=== PATIENT | male | born 1995 | race Caucasian/White ===

== ENCOUNTER 2016-07-26 10:56 | Emergency (ER) | payer MEDICAID ==
[2016-07-26] MEDS ORDERED: HYDROmorphone 0.5 MG/0.5 ML Syringe IVPUSH ONE (12:05)
--- NOTE | 2016-07-26 12:11 | EDM.PDOC ---
ED HISTORY OF PRESENT ILLNESS - General Chief Complaint: Chest Pain Stated Complaint: COMPLICATIONS FROM HEART SURGERY Time Seen by Provider: 07/26/16 11:00 Source: Reports: Patient History Limitations: Reports: No limitations - History of Present Illness INITIAL COMMENTS - FREE TEXT/NARRATIVE: pt had surgery by Dr Maite Kennedy 10 days ago for aortic insuff. he was doing well until he got up this am and he is having severe pain when he takes a deep breath. This makes him feel sob. He does have a 100 % o2 sat. Timing/Duration: Reports: Hour(s):, Getting worse Severity: moderate Location, General: Reports: chest Quality: Reports: Sharp, Stabbing Worsens with: Reports: Breathing Associated Symptoms: Reports: shortness of breath - Related Data Allergies/ADRs: Allergies Allergy/AdvReac Type Severity Reaction Status Date / Time No Known Allergies Allergy Verified 04/22/15 00:01 Home Meds: Home Meds Metoprolol Tartrate 50 mg PO BID 07/26/16 [History] Warfarin [Coumadin] 2.5 mg PO DAILY 07/26/16 [History] Past Medical History HEENT History: Reports: Impaired vision Other HEENT History: tonsillectomy Cardiovascular History: Reports: Heart murmur, Hypertension Other Cardiovascular History: Bicuspid valve disorder Respiratory History: Reports: Bronchitis, recurrent Musculoskeletal History: Reports: Back pain, chronic Psychiatric History: Reports: Anxiety - Infectious Disease History Infectious Disease History: Reports: Chicken pox - Past Surgical History HEENT Surgical History: Reports: Oral surgery, Tonsillectomy Cardiovascular Surgical History: Reports: Valve replacement Social & Family History - Family History Family Medical History: Noncontributory - Tobacco Use Smoking Status *Q: Former Smoker Years of Tobacco use: 8 Packs/Tins Daily: 0.3 Used Tobacco, but Quit: Yes Month Tobacco Last Used: Second Hand Smoke Exposure: Yes - Caffeine Use Caffeine Use: Reports: None - Recreational Drug Use Recreational Drug Use: No Drug Use in Last 12 Months: No Recreational Drug Type: Reports: Marijuana/Hashish Recreational Drug Use Frequency: Not Used In Over 6 Months - Living Situation & Occupation Living situation: Reports: with significant other Occupation: employed (Lives with his girlfriend in 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 He has good o2 sats at 100 %, He is on coumadin. He does not have a fever. Exam Limited By: No limitations General Appearance: alert, moderate distress Ears: normal TMs Nose: normal inspection Throat/Mouth: Normal inspection Head: atraumatic Neck: normal inspection Respiratory/Chest: decreased breath sounds, other (pain on the left side. ) Cardiovascular: regular rate, rhythm GI/Abdominal: soft, non tender (Male) Exam: Deferred Rectal (Males) Exam: Deferred Back Exam: normal inspection Extremities: normal inspection Neurological: alert, oriented, normal cognition Psychiatric: normal affect Course - Vital Signs Last Recorded V/S: Last Vital Signs Temp 36.3 C 07/26/16 11:06 Pulse 65 07/26/16 12:19 Resp 14 07/26/16 12:19 BP 124/74 07/26/16 12:19 Pulse Ox 97 07/26/16 12:19 - Orders/Labs/Meds Labs: Laboratory Tests 07/26/16 07/26/16 07/26/16 Range/Units 11:12 11:12 11:35 WBC 12.4 H (4.5-11.0) K/uL RBC 4.30 (4.30-5.90) M/uL Hgb 12.8 D (12.0-15.0) g/dL Hct 39.4 L (40.0-54.0) % MCV 92 (80-98) fL MCH 30 (27-31) pg MCHC 33 (32-36) % Plt Count 560 H (150-400) K/uL Add Manual Diff Yes Neutrophils % (Manual) 70 H (36-66) % Band Neutrophils % 1 L (5-11) % Lymphocytes % (Manual) 17 L (24-44) % Monocytes % (Manual) 11 H (2-6) % Eosinophils % (Manual) 1 L (2-4) % PT (9.5-12.0) sec INR (0.80-1.20) Sodium 141 (140-148) mmol/L Potassium 5.0 (3.6-5.2) mmol/L Chloride 101 (100-108) mmol/L Carbon Dioxide 31 (21-32) mmol/L Anion Gap 9.3 (5.0-14.0) mmol/L BUN 23 H D (7-18) mg/dL Creatinine 1.1 (0.8-1.3) mg/dL Est Cr Clr Drug Dosing 92.41 mL/min Estimated GFR (MDRD) > 60 (>60) Glucose 98 (74-106) mg/dL Calcium 9.1 (8.5-10.1) mg/dL Total Bilirubin 0.4 (0.2-1.0) mg/dL AST 13 L (15-37) U/L ALT 32 (12-78) U/L Alkaline Phosphatase 68 (46-116) U/L C-Reactive Protein (0.0-0.3) mg/dL Total Protein 7.7 (6.4-8.2) g/dL Albumin 4.2 (3.4-5.0) g/dL Globulin 3.5 (2.3-3.5) g/dL Albumin/Globulin Ratio 1.2 (1.2-2.2) Urine Color Yellow Urine Appearance Turbid Urine pH 8.0 (4.5-8.0) Ur Specific Ryan 1.010 (1.008-1.030) Urine Protein Negative (NEGATIVE) mg/dL Urine Glucose (UA) Normal (NEGATIVE) mg/dL Urine Ketones Negative (NEGATIVE) mg/dL Urine Occult Blood Negative (NEGATIVE) Urine Nitrite Negative (NEGAITVE) Urine Bilirubin Negative (NEGATIVE) Urine Urobilinogen Normal (NORMAL) mg/dL Ur Leukocyte Esterase Negative (NEGATIVE) Urine RBC 0-5 (0-5) Urine WBC 0-5 (0-5) Ur Epithelial Cells Not seen Amorphous Sediment Many Urine Bacteria Not seen Urine Mucus Rare 07/26/16 07/26/16 Range/Units 11:35 11:35 WBC (4.5-11.0) K/uL RBC (4.30-5.90) M/uL Hgb (12.0-15.0) g/dL Hct (40.0-54.0) % MCV (80-98) fL MCH (27-31) pg MCHC (32-36) % Plt Count (150-400) K/uL Add Manual Diff Neutrophils % (Manual) (36-66) % Band Neutrophils % (5-11) % Lymphocytes % (Manual) (24-44) % Monocytes % (Manual) (2-6) % Eosinophils % (Manual) (2-4) % PT 21.0 H (9.5-12.0) sec INR 1.94 H (0.80-1.20) Sodium (140-148) mmol/L Potassium (3.6-5.2) mmol/L Chloride (100-108) mmol/L Carbon Dioxide (21-32) mmol/L Anion Gap (5.0-14.0) mmol/L BUN (7-18) mg/dL Creatinine (0.8-1.3) mg/dL Est Cr Clr Drug Dosing mL/min Estimated GFR (MDRD) (>60) Glucose (74-106) mg/dL Calcium (8.5-10.1) mg/dL Total Bilirubin (0.2-1.0) mg/dL AST (15-37) U/L ALT (12-78) U/L Alkaline Phosphatase (46-116) U/L C-Reactive Protein 3.05 H (0.0-0.3) mg/dL Total Protein (6.4-8.2) g/dL Albumin (3.4-5.0) g/dL Globulin (2.3-3.5) g/dL Albumin/Globulin Ratio (1.2-2.2) Urine Color Urine Appearance Urine pH (4.5-8.0) Ur Specific Ryan (1.008-1.030) Urine Protein (NEGATIVE) mg/dL Urine Glucose (UA) (NEGATIVE) mg/dL Urine Ketones (NEGATIVE) mg/dL Urine Occult Blood (NEGATIVE) Urine Nitrite (NEGAITVE) Urine Bilirubin (NEGATIVE) Urine Urobilinogen (NORMAL) mg/dL Ur Leukocyte Esterase (NEGATIVE) Urine RBC (0-5) Urine WBC (0-5) Ur Epithelial Cells Amorphous Sediment Urine Bacteria Urine Mucus Meds: Medications Discontinued Medications Generic Name Dose Route Start Last Admin Trade Name Freq PRN Reason Stop Dose Admin Hydromorphone HCl 0.5 mg 07/26/16 12:05 07/26/16 12:15 Dilaudid IVPUSH 07/26/16 12:06 0.5 mg ONETIME ONE Administration - Re-Assessments/Exams Free Text/Narrative Re-Assessment/Exam: 07/26/16 12:13 pt has a chest xray that looks good. He has a crp which is elevated. His wbc is mildly elevated. His chems look good. His urine is clear. 07/26/16 12:14 chest xray is neg for infiltrate. 07/26/16 12:58 cardiovascular surger at [place] was contacted and they did not reccommnd any anti inflamitories. Departure - Departure Time of Disposition: 12:59 Disposition: Home, Self-Care 01 Condition: fair Clinical Impression: Johan syndrome, History of open heart surgery Instructions: Nonspecific Chest Pain, [id number] Referrals: PCP,None [Primary Care Provider] - Forms: ED Department Discharge Care Plan Goals: encourage deep breathing, norco 5/325 q6h prn for pain, take an extra 2.5 of coumadin and go back to the same dose, keep appt in [place] Thursday, cardiovasular surgery did not want to use antiinflamitories.
[2016-07-26 12:20] VITALS: BP 124/74
--- NOTE | 2016-07-28 09:51 | CR ---
Two-view chest Comparison: 31 May 2016. Findings: The patient has had a interval sternotomy for aortic valve repair.. The wires are intact. There is borderline cardiac enlargement. The vascula r structures are within normal limits. Impression: 1. No acute findings.
== END 2016-07-26 13:15 | disposition home or self-care (01) ==
LOC: JP.ED 10:56
DX: I97.0 Postcardiotomy syndrome (principal); I10 Essential (primary) hypertension; Z79.899 Other long term (current) drug therapy; Z79.01 Long term (current) use of anticoagulants; H54.7 Unspecified visual loss; Z95.5 Presence of coronary angioplasty implant and graft; Z87.891 Personal history of nicotine dependence
CPT/HCPCS: 36415; 71020; 80053; 81001; 85025; 85610; 86140; 93005; 96374; 99284; J1170; 93010; 99285

== ENCOUNTER 2016-10-13 17:09 | Emergency (ER) | payer MEDICAID ==
[2016-10-13] MEDS ORDERED: Sodium Chloride 0.9% 10 ML Syringe FLUSH PRN (17:44)
[2016-10-13] MEDS ORDERED: LORazepam 2 MG/ML MDV IVPUSH ONE (17:45)
[2016-10-13] MEDS ORDERED: Sodium Chloride 0.9% 1,000 ML IV ONE ×2 (17:45→19:14)
[2016-10-13] MEDS ORDERED: Ondansetron 4 MG/2 ML SDV IVPUSH ONE (17:46)
--- NOTE | 2016-10-13 17:58 | EDM.PDOC ---
ED HPI GENERAL MEDICAL PROBLEM - General Chief Complaint: Drug or Alcohol Abuse Stated Complaint: OPPIOD WITHDRAWLS Time Seen by Provider: 10/13/16 17:45 Source of Information: Reports: Patient History Limitations: Reports: No Limitations - History of Present Illness INITIAL COMMENTS - FREE TEXT/NARRATIVE: Joel is a 21 year old male who presents to the ED today with c/o anxiety, nausea , and generally not feeling well. Patient reports that he has been taking a "friends" morphine and tramadol for his chronic neck/back pain for the last 3 weeks. Patient has been using this daily at least 2 times a day until today when he had his last dose this morning. Patient reports his symptoms started this afternoon. Patient does endorse a hx of opioid dependance and has been through treatment in the past. Patient reports he has a treatment facility lined up for when he is done with the acute withdrawal phase. Patient had his aortic valve replaced in [place] 2 months ago, he denies any chest pain or heart related complications. Onset: Today Duration: Hour(s): (4) Upper Back Pain Score (Numeric/FACES): 4 - Related Data Allergies Allergy/AdvReac Type Severity Reaction Status Date / Time No Known Allergies Allergy Verified 10/13/16 17:26 Home Meds: Home Meds Metoprolol Tartrate 50 mg PO BID 07/26/16 [History] Warfarin [Coumadin] 1 tab PO DAILY 07/26/16 [History] Warfarin Sodium [Warfarin Sodium] 2 tab PO ASDIRECTED 10/13/16 [History] Past Medical History HEENT History: Reports: Impaired Vision Other HEENT History: tonsillectomy Cardiovascular History: Reports: Heart Murmur, Hypertension Other Cardiovascular History: Bicuspid valve disorder Respiratory History: Reports: Bronchitis, Recurrent Musculoskeletal History: Reports: Back Pain, Chronic Psychiatric History: Reports: Anxiety - Infectious Disease History Infectious Disease History: Reports: Chicken Pox - Past Surgical History HEENT Surgical History: Reports: Oral Surgery, Tonsillectomy Cardiovascular Surgical History: Reports: Valve Replacement Social & Family History - Family History Family Medical History: Noncontributory - Tobacco Use Smoking Status *Q: Current Every Day Smoker Years of Tobacco use: 8 Packs/Tins Daily: 0.5 Used Tobacco, but Quit: No Month Tobacco Last Used: Second Hand Smoke Exposure: Yes - Caffeine Use Caffeine Use: Reports: None - Recreational Drug Use Recreational Drug Use: Yes Drug Use in Last 12 Months: Yes Recreational Drug Type: Reports: Morphine, Other (see below) Other Recreational Drug Type: tramadol Recreational Drug Use Frequency: Daily - Living Situation & Occupation Living situation: Reports: with Significant Other Occupation: Employed ED ROS GENERAL - Review of Systems Review Of Systems: See Below Constitutional: Reports: Chills, Decreased Appetite HEENT: Reports: No Symptoms Respiratory: Reports: No Symptoms Cardiovascular: Reports: No Symptoms Endocrine: Reports: No Symptoms GI/Abdominal: Reports: Nausea : Reports: No Symptoms Musculoskeletal: Reports: Neck Pain, Back Pain Skin: Reports: No Symptoms Neurological: Reports: No Symptoms Psychiatric: Reports: Anxiety ED EXAM, BEHAVIORAL HEALTH - Physical Exam Exam: See Below Exam Limited By: No Limitations General Appearance: Alert, Anxious, Mild Distress Eye Exam: Bilateral Eye: EOMI, PERRL Ears: Normal External Exam Neck: Normal Inspection, Supple Respiratory/Chest: No Respiratory Distress, Lungs Clear, Normal Breath Sounds Cardiovascular: Normal Peripheral Pulses, No Edema, Tachycardia, Other ( Hypertensive) GI/Abdominal: Normal Bowel Sounds, Soft, Non-Tender Neurological: Alert, CN II-XII Intact Skin Exam: Other (mildly diaphoretic) COURSE, BEHAVIORAL HEALTH COMP - Course Vital Signs: Last Vital Signs Temp 36.8 C 10/13/16 18:52 Pulse 70 10/13/16 18:52 Resp 16 10/13/16 18:52 BP 147/75 H 10/13/16 18:52 Pulse Ox 98 10/13/16 18:52 Joel is a 21 year old male with a hx of recent aortic valve replacement and Johan's syndrome who presents to the ED today with c/o opioid withdrawal. Please refer to HPI and focused exam. Patient on exam is anxious, he is mildly diaphoretic. Patient arrives here hypertensive and tachycardic. Exam is consistent with acute withdrawal. PIV established. Patient was given 1.5 liters of NS. He was given Zofran IV for nausea and IV ativan for anxiety and withdrawal symptoms with vast improvement. Blood work returns including CBC and CMP within normal limits. Urine Drug screen is positive for opioids, benzodiazepine and methadone. I discussed findings with patient whose grandfather is now at bedside and will be with patient during his withdrawal. Patient reports he does have outpatient chem dep lined up for when his active withdrawal is done. I feel patient is stable to be discharged home with his grandfather, he looks much better, VS have improved. Patient does reports worsening anxiety and depression lately which certainly is likely contributing to his opioid use, I encouraged him to follow up with his PCP in 1-2 weeks to discuss starting an anti-depressant. I don't want to start him on anything while he is in active withdrawal as the side effects may mimic any withdrawal symptoms. Patient was discharged with Zofran and 10 tablets of Ativan for his withdrawal symptoms. Patient's grandfather reports that he will be in charge of the Ativan for patient. I discussed with both patient and his grandfather reasons to return to the ED. They are agreeable to plan of care and questions were answered prior to discharge. Patient discharged with his grandfather driving and in stable condition. Orders, Labs, Meds: Active Orders 24 hr Category Date Time Status Peripheral IV Care [RC] . DIRECTED Care 10/13/16 17:45 Active Sodium Chloride 0.9% [Normal Saline] 1,000 ml Med 10/13/16 19:14 Active IV .BOLUS Sodium Chloride 0.9% [Saline Flush] Med 10/13/16 17:44 Active 10 ml FLUSH ASDIRECTED PRN Peripheral IV Insertion Adult [OM.PC] Routine Oth 10/13/16 17:44 Ordered Medication Orders Sodium Chloride (Normal Saline) 1,000 mls @ 250 mls/hr IV .BOLUS ONE Stop: 10/13/16 23:13 Last Admin: 10/13/16 19:24 Dose: 250 mls/hr Sodium Chloride (Saline Flush) 10 ml FLUSH ASDIRECTED PRN PRN Reason: Keep Vein Open Last Admin: 10/13/16 19:33 Dose: 10 ml Laboratory Tests 10/13/16 10/13/16 10/13/16 Range/Units 17:56 17:56 19:56 WBC 7.3 (4.5-11.0) K/uL RBC 5.09 (4.30-5.90) M/uL Hgb 14.8 D (12.0-15.0) g/dL Hct 43.6 (40.0-54.0) % MCV 86 (80-98) fL MCH 29 (27-31) pg MCHC 34 (32-36) % Plt Count 239 (150-400) K/uL Neut % (Auto) 64 (36-66) % Lymph % (Auto) 25 (24-44) % Curry % (Auto) 11 H (2-6) % Eos % (Auto) 0 L (2-4) % Baso % (Auto) 0 (0-1) % Sodium 144 (140-148) mmol/L Potassium 4.2 (3.6-5.2) mmol/L Chloride 105 (100-108) mmol/L Carbon Dioxide 28 (21-32) mmol/L Anion Gap 10.7 (5.0-14.0) mmol/L BUN 10 D (7-18) mg/dL Creatinine 0.9 (0.8-1.3) mg/dL Est Cr Clr Drug Dosing 112.94 mL/min Estimated GFR (MDRD) > 60 (>60) Glucose 103 (74-106) mg/dL Calcium 8.9 (8.5-10.1) mg/dL Total Bilirubin 0.4 (0.2-1.0) mg/dL AST 13 L (15-37) U/L ALT 12 (12-78) U/L Alkaline Phosphatase 97 (46-116) U/L Total Protein 7.3 (6.4-8.2) g/dL Albumin 4.3 (3.4-5.0) g/dL Globulin 3.0 (2.3-3.5) g/dL Albumin/Globulin Ratio 1.4 (1.2-2.2) Urine Opiates Screen Positive H (NEGATIVE) Ur Oxycodone Screen Negative (NEGATIVE) Urine Methadone Screen Positive H (NEGATIVE) Ur Propoxyphene Screen Negative (NEGATIVE) Ur Barbiturates Screen Negative (NEGATIVE) Ur Tricyclics Screen Negative (NEGATIVE) Ur Phencyclidine Scrn Negative (NEGATIVE) Ur Amphetamine Screen Negative (NEGATIVE) U Methamphetamines Scrn Negative (NEGATIVE) Urine MDMA Screen Negative (NEGATIVE) U Benzodiazepines Scrn Positive H (NEGATIVE) U Cocaine Metab Screen Negative (NEGATIVE) U Marijuana (THC) Screen Negative (NEGATIVE) Medications Generic Name Dose Route Start Last Admin Trade Name Freq PRN Reason Stop Dose Admin Sodium Chloride 1,000 mls @ 250 mls/hr 10/13/16 19:14 10/13/16 19:24 Normal Saline IV 10/13/16 23:13 250 mls/hr .BOLUS ONE Administration Sodium Chloride 10 ml 10/13/16 17:44 10/13/16 19:33 Saline Flush FLUSH 10 ml ASDIRECTED PRN Administration Keep Vein Open Discontinued Medications Generic Name Dose Route Start Last Admin Trade Name Michelle PRN Reason Stop Dose Admin Sodium Chloride 1,000 mls @ 999 mls/hr 10/13/16 17:45 10/13/16 17:55 Normal Saline IV 10/13/16 18:45 999 mls/hr .BOLUS ONE Administration Sodium Chloride 250 mls @ 250 mls/hr 10/13/16 19:15 Normal Saline IV ASDIRECTED AGUS Lorazepam 1 mg 10/13/16 17:45 10/13/16 17:57 Ativan IVPUSH 10/13/16 17:46 1 mg ONETIME ONE Administration Ondansetron HCl 4 mg 10/13/16 17:46 10/13/16 17:56 Zofran IVPUSH 10/13/16 17:47 4 mg ONETIME ONE Administration Departure - Departure Time of Disposition: 20:30 Disposition: Home, Self-Care 01 Condition: good Clinical Impression: Drug abuse, Opioid withdrawal, Drug dependence - Discharge Information Instructions: Chemical Dependency, Opioid Withdrawal Referrals: Efrem Martinez PA-C [Primary Care Provider] - Forms: ED Department Discharge Additional Instructions: Joel I have given you zofran for nausea as well as ativan for withdrawal symptoms. You can take the ativan every 8 hours as needed for anxiety and withdrawal symptoms. Please follow through with chemical dependency treatment to help you through this. I would like you to also see your primary care provider in the next 1-2 weeks to discuss starting an anti-depressant which will help with your anxiety and depression. If you can control these, you may find that your desire to take pain medication improves as well. I wish you the best as you work through this. Good luck with everything, if you have any concerns or worsening symptoms, please return to the ED. - My Orders Last 24 Hours: My Active Orders 10/13/16 17:44 Sodium Chloride 0.9% [Saline Flush] 10 ml FLUSH ASDIRECTED PRN Peripheral IV Insertion Adult [OM.PC] Routine 10/13/16 17:45 Peripheral IV Care [RC] . DIRECTED 10/13/16 19:14 Sodium Chloride 0.9% [Normal Saline] 1,000 ml IV .BOLUS - Assessment/Plan Last 24 Hours: My Active Orders 10/13/16 17:44 Sodium Chloride 0.9% [Saline Flush] 10 ml FLUSH ASDIRECTED PRN Peripheral IV Insertion Adult [OM.PC] Routine 10/13/16 17:45 Peripheral IV Care [RC] . DIRECTED 10/13/16 19:14 Sodium Chloride 0.9% [Normal Saline] 1,000 ml IV .BOLUS
[2016-10-13] MEDS ORDERED: Sodium Chloride 0.9% 250 ML IV SCH (19:15)
[2016-10-13 20:32] VITALS: BP 141/86
== END 2016-10-13 20:48 | disposition home or self-care (01) ==
LOC: JP.ED 17:09
DX: F11.23 Opioid dependence with withdrawal (principal); F19.10 Other psychoactive substance abuse, uncomplicated; F19.939 Other psychoactive substance use, unspecified with withdrawal, unspecified; I10 Essential (primary) hypertension; F17.210 Nicotine dependence, cigarettes, uncomplicated; Z95.2 Presence of prosthetic heart valve; Z98.890 Other specified postprocedural states; Z79.01 Long term (current) use of anticoagulants; Z79.899 Other long term (current) drug therapy
CPT/HCPCS: 36415; 80053; 80305; 85025; 96361; 96374; 96375; 99284; J2060; J2405; J7040; J7050

== ENCOUNTER 2017-03-19 09:44 | Emergency (ER) | payer MEDICAID ==
[2017-03-19 10:01] VITALS: BP 132/80
--- NOTE | 2017-03-19 10:46 | CR ---
Pelvis There are postsurgical changes of the right acetabulum. The hardware is intact. Both hips demonstrate normal alignment. There is no evidence for acute fracture. Impression: 1. No acute findings.
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
== END 2017-03-19 11:10 | disposition home or self-care (01) ==
LOC: JP.ED 09:44
DX: G89.18 Other acute postprocedural pain (principal); M25.551 Pain in right hip; Z79.01 Long term (current) use of anticoagulants; F17.210 Nicotine dependence, cigarettes, uncomplicated
CPT/HCPCS: 72170; 72170-26; 99283; 99284